=== PATIENT | male | born 1985 | race Caucasian/White ===

== ENCOUNTER 2017-05-29 00:47 | Emergency (ER) | payer OTHER ==
[~2017-05-29] VITALS: Ht 170.2 cm; Wt 65.8 kg
[2017-05-29 01:56] VITALS: BP 141/87
== END 2017-05-29 01:56 | disposition other institution (70) ==
LOC: ED 00:47
DX: S00.81XA Abrasion of other part of head, initial encounter (principal); M25.531 Pain in right wrist; V49.40XA Driver injured in collision with unspecified motor vehicles in traffic accident, initial encounter; Y93.89 Activity, other specified; Y99.8 Other external cause status; Y92.89 Other specified places as the place of occurrence of the external cause